=== PATIENT | female | born 1950 | race Hispanic/Latino ===

== ENCOUNTER → 2017-10-15 | Outpatient (CLI) | payer MEDICARE | LOC: MAMMO 11:52 | PROVIDERS: ATTEND Internal Medicine | DX: Z12.31 Encounter for screening mammogram for malignant neoplasm of breast (principal) | CPT/HCPCS: G0202 ==

== ENCOUNTER 2017-12-03 07:04 | Observation (INO) | payer MEDICARE ==
[2017-11-30 14:28] LABS: BASOPHILS # (AUTO) 0.1 (0.0-0.1); BASOPHILS % 0.9 % (0.0-1.0); EOSINOPHILS % 0.6 % (0.0-6.0); HEMATOCRIT 34.1 % (34.2-44.1); HEMOGLOBIN 11.4 g/dL (12.0-16.0); LYMPHOCYTES # (AUTO) 2.2 (1.0-3.2); LYMPHOCYTES % 39.6 % (18.0-39.1); MEAN CORPUSCULAR HEMOGLOBIN 29.9 pg (28-32); MEAN CORPUSCULAR HGB CONC 33.4 g/dL (31-35); MEAN CORPUSCULAR VOLUME 89.5 fL (81-99); MONOCYTES # (AUTO) 0.4 (0.2-0.8); MONOCYTES % 6.6 % (4.4-11.3); NEUTROPHILS # (AUTO) 2.8 (2.1-6.9); NEUTROPHILS % 52.1 % (38.7-80.0); PLATELET COUNT 306 x10e3/uL (140-360); RED BLOOD COUNT 3.81 x10e6/uL (3.6-5.1); RED CELL DISTRIBUTION WIDTH 13.2 % (11.7-14.4)
[2017-12-03] VITALS (7 sets, daily range): BP systolic 112–130; BP diastolic 54–66
[~2017-12-03] VITALS: Ht 160 cm; Wt 68.0 kg
[~2017-12-03 07:04] MED LIST: ALENDRONATE SOD70 MG; BACITRACIN 50,000 UNIT VIAL ONE; CEFAZOLIN SOD 2 GM/D5W 50ML 50 ML IV ONE; CELECOXIB 200 MG CAP ONE; DEXAMETHASONE SOD PHOS 10 MG/1 ML VIAL ONE; GABAPENTIN 300 MG CAP ONE; LEVOCETIRIZINE D5 MG; MUPIROCIN 2% OINT 22 GM TUBE ONE; ROPIVACAINE 246.25 MG, EPINEPHRINE HCL 1:1000 0.5 MG, CLONIDINE HCL 0.08 MG, KETOROLAC ... INJ ONE; TIZANIDINE HCL4 MG PO; TRANEXAMIC ACID 1,000 MG/10 ML ML ONE
--- OUTSIDE RECORDS SUMMARY | 2017-12-03 07:07 | XMS REPORT ---
[facility] Address Unknown Phone Unavailable Care Team Providers Care Regulator Operator Name Role Phone PERRY LAMBERT Unavailable Unavailable Problems This patient has no known problems. Allergies, Adverse Reactions, Alerts This patient has no known allergies or adverse reactions. Medications This patient has no known medications. Results Test Description Test Time Test Comments Text Results Atomic Results Result Comments MAMMOGRAPHY DIGITAL SCR BILAT [place] [address] Patient Name: MARIA E BENTON MR #: [id number] : 1950 Age/Sex: 67/F Req #: [id number] Adm Physician: Ordered by: PERRY LAMBERT MD Report #: [id number] Location: MAMMO Room/Bed: Procedure: [id number] MG/MAMMOGRAPHY DIGITAL SCR BILAT Exam Date: Exam Time: 1233 REPORT STATUS: Signed #[id number] - [id number] #BILATERAL DIGITAL SCREENING MAMMOGRAM WITH CAD : 10/15/2017 CLINICAL: Routine screening. No prior exams were available for comparison. Current study contains 4 films. The tissue of both breasts is heterogeneously dense. This may lower the sensitivity of mammography. Current study was also evaluated with a Computer Aided Detection (CAD) system. There are benign vascular calcifications and calcifications in both breasts. No significant masses, calcifications, or other findings are seen in either breast. IMPRESSION: BENIGN There is no mammographic evidence of malignancy. A 1 year screening mammogram is recommended. The patient will be notified by letter of the results. Tima foster/constanza:10/29/2017 10:04:00 Circus Rider: Marlyn RODRÍGUEZ)(Kimber), [facility] letter sent: Normal Exam Mammogram BI-RADS: 2 Benign Dictated By: TIMA JACOBSEN DO 1004 Transcribed By: CONSTANZA on 10/29/17 1004 COPY TO: PERRY LAMBERT MD
[2017-12-03] MEDS: SODIUM CHLORIDE 0.9% 1000ML 1,000 ML IV SCH ×2 (08:32→16:22)
[2017-12-03] MEDS ORDERED: DIPHENHYDRAMINE HCL INJ 50 MG/ML VIAL IM/IV PRN (08:45)
[2017-12-03] MEDS ORDERED: ACETAMINOPHEN 650 MG SUPP PR PRN (08:45)
[2017-12-03] MEDS ORDERED: HYDROCODONE/APAP 7.5MG-325MG 1 EA TAB PO PRN (08:45)
[2017-12-03] MEDS ORDERED: ONDANSETRON HCL INJ 2 MG/ML VIAL IV PRN (08:45)
[2017-12-03] MEDS ORDERED: ZOLPIDEM TARTRATE 5 MG TAB PO PRN (08:45)
[2017-12-03] MEDS ORDERED: DOCUSATE SODIUM 100 MG CAP PO PRN (08:45)
[2017-12-03] MEDS ORDERED: PROMETHAZINE HCL (IM) 25 MG/ML VIAL INJ PRN (08:45)
--- NOTE | 2017-12-03 10:10 | Diagnostic Imaging Report ---
PROCEDURE: X-RAY RIGHT KNEE, ONE OR TWO VIEWS COMPARISON: None. INDICATIONS:POST OP RIGHT KNEE SURGERY FINDINGS: See conclusion. CONCLUSION: Status post total right knee replacement with surrounding soft tissue swelling, air and maximus consistent with recent surgery. No acute fractures. Dictated by: Alejandro Espino M.D. on 12/03/2017 at 10:10 Electronically approved by: Alejandro Espino M.D. on 12/03/2017 at 10:10
[2017-12-03] MEDS: ASPIRIN 325 MG TAB PO SCH ×2 (10:19→16:48)
--- NOTE | 2017-12-03 11:42 | Operative Report ---
DATE OF PROCEDURE: December 03, 2017 IT QUALITY ASSURANCE ANALYST: Vinnie Escalera PA-C The patient was brought to the operating room for induction of anesthesia. Throughout this case, my PA's assistance was necessary for retraction of soft tissue and positioning of the extremity. This allows for efficient and technically successful execution of the operation and is considered medically necessary. PREOPERATIVE DIAGNOSIS: Osteoarthritis, right knee. SECONDARY DIAGNOSES: Interosseous lipoma/dormant Paget's disease. PROCEDURE: Right total knee arthroplasty. INDICATIONS: The patient is a 67-year-old lady with a long history of right knee pain. She has been seen in the clinic and evaluated. She has a proximal tibial deformity secondary to some element of metabolic bone disease. She has a normal alkaline phosphatase. An MRI suggested an interosseous lipoma. Consultation with orthopedic colleagues feels that it is more consistent with dormant Paget's disease. The findings and options have been discussed. We plan on a right total knee arthroplasty. Due to the proximal tibial deformity, some persistent deformity is unavoidable. She is not really considered a candidate for a proximal tibial osteotomy. The patient states she understands and wishes to proceed. DESCRIPTION OF PROCEDURE: The patient was brought to the operating room and placed under general anesthetic. She received a regional block, prophylactic antibiotics and tranexamic acid in the holding area. Her right lower extremity was prepped and draped in a sterile manner. A preoperative time out was performed. The extremity was exsanguinated, and a proximal tourniquet was inflated to 300 mmHg. A limited incision anterior approach was made to the right knee. Medial parapatellar arthrotomy was performed. Abundant subcutaneous fatty tissue was encountered. Care was taken to minimize soft tissue planes and space. The knee was brought up into flexion with the patella everted. Meniscal remnants and cruciate ligaments were removed. Throughout the case, a [employer] Krystin II posterior stabilized knee system was used. Initial attention was directed towards the proximal tibia. There was indeed noted to be quite significant varus deformity with posterior slope. I tried to minimize as much resection of the anterior tibia while still being able to resect the posterior tibial. We split the difference on her posterior slope. The tibial baseplate was noted to be a size number 4. A large amount of interosseous lipomatous tissue was noted. Large proximal cysts were noted. The proximal tibia was sent to pathology. The central fin punch was impacted, and attention was directed towards the distal femur. The distal femur had normal bone anatomy. An intramedullary cutting guide was used to resect the distal femur in 6 degrees of valgus and rotation referenced off of a combination of landmarks including [place] line, the epicondylar axis and posterior condyles. The femoral component was also a size number 4. The anterior and posterior cuts were made. Trial reductions were performed. The knee had good stability with a 9-mm ultracongruent tibial insert. This was tested in both flexion and extension. I was quite satisfied with the stability. The patella was then resurfaced with a 29 mm x 9 mm patellar button. The thickness was checked before and after and was right at 20 mm. Patellar tracking was noted to be concentric. The trial implants were then all removed. A 100 mL premixed pericapsular ADAN injection was placed into the soft tissue. Remnants of autologous bone graft taken from the femoral cuts were used to impaction graft some of the defects of the proximal tibia. The components were cemented into place using a single mix of [place] cement preloaded with gentamicin. The knee had been thoroughly irrigated with a shower-tip pulsatile lavage prior to cementing. The surfaces were clean and dry at the time of cementation. All extravasated cement was carefully removed. The knee was further irrigated while the cement cured. The arthrotomy was then closed with #1 Ethibond in an interrupted fashion. The knee was put through flexion and extension to ensure a secure closure. The skin was closed with subcuticular Vicryl and maximus. A sterile bandage was applied. The patient was extubated and transported to the recovery room in stable condition. Blood loss was minimal, and all needle and sponge counts were correct. Job#: [id number]
[2017-12-03] MEDS: ACETAMINOPHEN 1000 MG/100 ML IV SCH ×2 (11:53→17:12)
[2017-12-03] MEDS: CEFAZOLIN SOD 1 GM VIAL IV SCH ×2 (13:16→21:37)
[2017-12-03] MEDS ORDERED: EPINEPHRINE HCL INJ 1 MG/ML AMP ONE (13:49)
[2017-12-03] MEDS ORDERED: BUPIVACAINE 0.25% 30ML SDV INJ ONE (13:49)
[2017-12-03] MEDS ORDERED: MIDAZOLAM HCL 2 MG/2 ML VIAL ONE (13:52)
[2017-12-03] MEDS ORDERED: FENTANYL CITRATE/PF 100MCG/2 ML INJ ONE (13:52)
[2017-12-03] MEDS ORDERED: MORPHINE SULFATE INJ 10 MG/ML ONE (13:52)
[2017-12-03] MEDS ORDERED: CEFAZOLIN SOD 1 GM/NS 50ML 50 ML IV SCH (14:00)
[2017-12-03] MEDS: CELECOXIB 200 MG CAP PO SCH (16:48)
[2017-12-03] MEDS ORDERED: ACETAMINOPHEN 1000 MG/100 ML IV ONE (17:45)
[2017-12-03] MEDS ORDERED: PROPOFOL IV EMULSION 10 MG/ML 20 ML VIAL ONE (17:45)
[2017-12-03] MEDS ORDERED: DEXAMETHASONE SOD PHOS INJ 4 MG/ML VIAL ONE (17:45)
[2017-12-03] MEDS ORDERED: EPHEDRINE SULFATE INJ 50 MG/10 ML SYR ONE (17:45)
[2017-12-03] MEDS ORDERED: ONDANSETRON HCL INJ 2 MG/ML VIAL ONE (17:45)
[2017-12-03] MEDS ORDERED: SEVOFLURANE INHAL SOLN 250 ML PEN BTL ONE (17:45)
[2017-12-03] MEDS ORDERED: LIDOCAINE HCL 2% LOCAL INJ 5 ML SDV VIAL INJ ONE (17:45)
[2017-12-04] VITALS: BP 99/53
[2017-12-04] MEDS: ACETAMINOPHEN 1000 MG/100 ML IV SCH ×2 (00:11→06:01)
[2017-12-04 04:00] VITALS: BP 106/53
[2017-12-04] MEDS: SODIUM CHLORIDE 0.9% 1000ML 1,000 ML IV SCH (04:32)
[2017-12-04] MEDS: HYDROCODONE/APAP 5MG-325MG TAB PO PRN ×2 (05:21→11:30)
[2017-12-04] MEDS: CEFAZOLIN SOD 1 GM VIAL IV SCH (06:01)
[2017-12-04 07:12] LABS: HEMATOCRIT 26.1 % (34.2-44.1); HEMOGLOBIN 8.7 g/dL (12.0-16.0)
[2017-12-04 07:40] VITALS: BP 106/53
[2017-12-04 07:57] VITALS: BP 109/59
[2017-12-04] MEDS: CELECOXIB 200 MG CAP PO SCH (08:02)
[2017-12-04] MEDS: ASPIRIN 325 MG TAB PO SCH (08:02)
[2017-12-04] MEDS ORDERED: ACETAMINOPHEN 1000 MG/100 ML IV PRN (08:45)
[2017-12-04] MEDS ORDERED: ASPIRIN325 MG PO (09:51)
[2017-12-04 12:10] VITALS: BP 111/54
== END 2017-12-04 14:30 | disposition home health service (06) ==
LOC: OR 07:04 → INTOOBSV 09:44 → MED/SURG 09:44
PROVIDERS: ADMIT Specialist; ATTEND Specialist
DX: M17.11 Unilateral primary osteoarthritis, right knee (principal); G43.909 Migraine, unspecified, not intractable, without status migrainosus; M88.8 Osteitis deformans of other bones; D17.23 Benign lipomatous neoplasm of skin and subcutaneous tissue of right leg; D64.9 Anemia, unspecified
CPT/HCPCS: 36415; 85014; 85018; 85025; 86850; 86900; 86920; 88305; 88311; 93005; 97139; G0378; J0171; J0690; J1100; J1885; J2001; J2250; J2270; J2405; J2795; J7030